=== PATIENT | male | born 1945 | race Native Hawaiian/Other Pacific Islander ===

== ENCOUNTER 2018-03-16 10:07 | Outpatient (CLI) | payer OTHER ==
[2018-03-22] MEDS ORDERED: DOCU100C10 PO (13:36)
[2018-03-22] MEDS ORDERED: DULO30CA PO (13:37)
[2018-03-22] MEDS ORDERED: DIVA250T2 PO (13:38)
[2018-03-22] MEDS ORDERED: BUSP5TAB2 PO (13:39)
[2018-03-22] MEDS ORDERED: DIVA500T2 PO (13:39)
[2018-03-22] MEDS ORDERED: METO50TA27 PO (13:40)
[2018-03-22] MEDS ORDERED: BACLOFEN10 MG PO (13:41)
[2018-03-22] MEDS ORDERED: NEURONTIN800 MG PO (13:42)
[2018-03-22] MEDS ORDERED: HYDR10TA47 PO ×2 (13:42→13:51)
[2018-03-22] MEDS ORDERED: LIPITOR10 MG PO (13:43)
[2018-03-22] MEDS ORDERED: LEXAPRO20 MG PO (13:44)
[2018-03-22] MEDS ORDERED: TRAZ100T PO (13:45)
[2018-03-22] MEDS ORDERED: SENOKOT S1 TAB PO (13:45)
[2018-03-22] MEDS ORDERED: NITROGLYCERIN0.3 MG SL (13:47)
[2018-03-22] MEDS ORDERED: PROM25IN5 INJ (13:48)
[2018-03-22] MEDS ORDERED: DULCOLAX5 MG PO (13:51)
[2018-03-22] MEDS ORDERED: CLON0.5T36 PO (13:52)
[2018-03-22] MEDS ORDERED: LEVO0.1519 PO (13:53)
[2018-03-22] MEDS ORDERED: AMANTADINE100 MG PO (13:55)
[2018-03-22] MEDS ORDERED: PACERONE200 MG PO (13:56)
[2018-03-22] MEDS ORDERED: AMLO2.5T PO (13:56)
[2018-03-22] MEDS ORDERED: ASPIR-LOW81 MG PO (13:57)
[2018-03-31] MEDS ORDERED: BUSP15TAB2 PO (19:12)
== END 2018-03-16 20:01 | disposition home or self-care (01) ==
LOC: MRI 10:07
DX: G93.5 Compression of brain (principal)

== ENCOUNTER 2019-11-30 13:21 | Emergency (ER) | payer OTHER ==
[~2019-11-30] VITALS: Ht 188 cm; Wt 91.6 kg
[~2019-11-30 13:21] MED LIST: AMANTADINE100 MG PO; AMLO2.5T PO; ASPIR-LOW81 MG PO; BACLOFEN10 MG PO; BUSP15TAB2 PO; BUSP5TAB2 PO; CLON0.5T36 PO; DIVA250T2 PO; DIVA500T2 PO; DOCU100C10 PO; DULCOLAX5 MG PO; DULO30CA PO; HYDR10TA47 PO; LEVO0.1519 PO; LEXAPRO20 MG PO; LIPITOR10 MG PO; METO50TA27 PO; NEURONTIN800 MG PO; NITROGLYCERIN0.3 MG SL; PACERONE200 MG PO; PROM25IN5 INJ; SENOKOT S1 TAB PO; TRAZ100T PO
[2019-11-30 13:30] VITALS: BP 167/97; TEMP 97.7
[2019-11-30 14:00] LABS: PLATELET COUNT 156 K/uL (142-355)
[2019-11-30 14:05] LABS: POTASSIUM 4.2 mmol/L (3.6-5.2)
[2019-11-30] MEDS ORDERED: AMANTADINE100 MG PO (16:30)
[2019-11-30] MEDS ORDERED: DULOXETINE HCL60 MG PO (16:32)
[2019-11-30] MEDS ORDERED: UNITH DIRECT50 MCG PO (16:33)
[2019-11-30] MEDS ORDERED: LINZESS145 MCG PO (16:34)
[2019-11-30] MEDS ORDERED: METAMUCIL0.52 GM PO (16:34)
[2019-11-30] MEDS ORDERED: PANTOPRAZOLE 40MG TA PO (16:35)
[2019-11-30] MEDS ORDERED: TAMSULOSIN0.4 MG PO (16:36)
[2019-11-30] MEDS ORDERED: RISP0.5T2 PO (16:36)
[2019-11-30] MEDS ORDERED: TIZA4TAB5 PO (16:37)
== END 2019-11-30 14:22 | disposition other institution (70) ==
LOC: ED 13:21
PROVIDERS: Emergency Medicine
DX: F20.89 Other schizophrenia (principal); I44.4 Left anterior fascicular block; Z04.6 Encounter for general psychiatric examination, requested by authority
CPT/HCPCS: 80053; 81000; 85027; 93005; 99283

== ENCOUNTER 2022-01-07 19:36 | Emergency (ER) | payer OTHER ==
[~2022-01-07] VITALS: Ht 182.9 cm; Wt 90.7 kg
[~2022-01-07 19:36] MED LIST changes: +DIVALPROEX500 MG PO; +DULOXETINE HCL60 MG PO; +LINZESS145 MCG PO; +METO-837 PO; +PANTOPRAZOLE 40MG TA PO; +PSYL0.52C PO; +RISP0.5T2 PO; +RISP1TAB PO; +TAMSULOSIN0.4 MG PO; +TIZA4TAB5 PO; +UNITH DIRECT50 MCG PO
[2022-01-07 20:03] LABS: PLATELET COUNT 201 K/uL (142-355)
[2022-01-07 20:23] LABS: POTASSIUM 3.9 mmol/L (3.6-5.2)
[2022-01-07 21:12] VITALS: BP 176/92; TEMP 98
[2022-01-08] MEDS ORDERED: DULO60CA2 PO (09:52)
[2022-01-08] MEDS ORDERED: DOCU100C10 PO (09:53)
[2022-01-08] MEDS ORDERED: LINZESS290 MCG PO (09:55)
[2022-01-08] MEDS ORDERED: REMERON30 MG PO (10:00)
[2022-01-08] MEDS ORDERED: RISP0.5T2 PO ×2 (10:01→10:15)
[2022-01-08] MEDS ORDERED: FINA5TAB2 PO (10:01)
[2022-01-08] MEDS ORDERED: ARTIFICIAL TEARS1 % OPTH (10:04)
[2022-01-08] MEDS ORDERED: TRICOR145 M1 PO (10:06)
[2022-01-08] MEDS ORDERED: APLISOL5 UNIT/0.1 ID (10:08)
[2022-01-08] MEDS ORDERED: MS CONTIN30 MG PO (10:13)
[2022-01-08] MEDS ORDERED: OXYB5TAB56 PO (10:14)
[2022-01-08] MEDS ORDERED: DICYCLOMINE HYD10 MG PO (10:15)
[2022-01-08] MEDS ORDERED: LACTSYP31 PO (10:16)
[2022-01-08] MEDS ORDERED: MYLANT3 PO (10:17)
[2022-01-08] MEDS ORDERED: DIAZ2TAB PO (10:18)
[2022-01-08] MEDS ORDERED: HALO5INJ3 IM (10:19)
[2022-01-08] MEDS ORDERED: PERCOCET1 TA3 PO (10:20)
[2022-01-08] MEDS ORDERED: TYLENOL325 MG PO (10:20)
[2022-01-08] MEDS ORDERED: ONDA4TAB3 PO (10:21)
== END 2022-01-07 21:19 | disposition still patient (30) ==
LOC: ED 19:36
PROVIDERS: Hospitalist
DX: F25.8 Other schizoaffective disorders (principal); F03.91 Unspecified dementia, unspecified severity, with behavioral disturbance; Z11.52 Encounter for screening for COVID-19; Z04.6 Encounter for general psychiatric examination, requested by authority; Z79.899 Other long term (current) drug therapy; Z51.81 Encounter for therapeutic drug level monitoring
CPT/HCPCS: 36415; 80053; 82948; 85027; 87635; 93005; 99283; U0003